=== PATIENT | male | born 1935 | race Caucasian/White ===

== ENCOUNTER → 2017-03-08 | Outpatient (CLI) | payer BC ==
[2017-03-08 09:45] LABS: BASO % 0.3 %; BASO ABS # 0.02 K/uL (0-0.2); COMPLETE YES; EOS % 4.8 %; IG% 0.1 %; LYMPH ABS # 3.13 K/uL (1.2-3.4); MEAN CORPUSCULAR HEMOGLOBIN 30.6 pg (25-34); MEAN CORPUSCULAR HGB CONC 33.3 g/dl (32-36); MEAN PLATELET VOLUME 10.8 fL (7.4-10.4); MONO % 9.6 %; NEUT % 42.2 %; PLATELET COUNT 208 K/uL (130-400); RED BLOOD COUNT 4.35 M/uL (4.7-6.1); WHITE BLOOD COUNT 7.28 K/uL (4.8-10.8)
[2017-03-08 09:59] LABS: ALT/SGPT 27 U/L (12-78); BLOOD UREA NITROGEN 21 mg/dl (7-18); BUN/CREATININE RATIO 15.9 (10-20); CALCIUM 9.7 mg/dl (8.5-10.1); CARBON DIOXIDE 27 mmol/L (21-32); CHLORIDE 107 mmol/L (98-107); GLUCOSE 118 mg/dl (70-99); POTASSIUM 4.2 mmol/L (3.5-5.1); SODIUM 140 mmol/L (136-145)
[2017-03-08 10:02] LABS: ALKALINE PHOSPHATASE 45 U/L (45-117); AST/SGOT 19 U/L (15-37)
== END | disposition home or self-care (01) ==
LOC: C.LABVPSUW 09:16
PROVIDERS: ATTEND Internal Medicine Critical Care Medicine
DX: D64.9 Anemia, unspecified (principal); I10 Essential (primary) hypertension

== ENCOUNTER → 2017-03-14 | Outpatient (CLI) | payer BC ==
[~2017-03-14] MED LIST: GADAVIST IV PRN
--- NOTE | 2017-03-14 10:08 | DIAGNOSTIC IMAGING REPORT ---
MRI OF THE BRAIN WITHOUT AND WITH IV CONTRAST CLINICAL HISTORY: RIGHT SIDE STROKE COMPARISON STUDY: No previous studies for comparison. TECHNIQUE: Utilizing a 1.5 Della magnet and dedicated coil, multiplanar, multiecho imaging of the brain was performed pre and postcontrast administration. IV administration of 8.5 mL of Gadavist contrast was uneventful. FINDINGS: No evidence for an acute ischemic event. Mild age-related chronic small vessel change. Ventricular system is midline. Postcontrast images are considered negative for an enhancing lesion. Sella and parasellar regions are unremarkable. IMPRESSION: Negative MRI of the brain for age. No evidence for an acute ischemic event. Electronically signed by: Дмитрий Fuentes M.D. 03/14/2017 10:07 AM Dictated Date/Time: 03/14/2017 10:03 AM
== END | disposition home or self-care (01) ==
LOC: C.MRI 09:01
PROVIDERS: ATTEND Internal Medicine Critical Care Medicine
DX: I63.9 Cerebral infarction, unspecified (principal)

== ENCOUNTER → 2017-05-10 | Outpatient (CLI) | payer BC ==
--- NOTE | 2017-05-10 09:48 | DIAGNOSTIC IMAGING REPORT ---
L-SPINE MIN 4 VIEWS ROUTINE CLINICAL HISTORY: 82 years-old Male presenting with COMPRESSION FRACTURE. TECHNIQUE: Frontal, bilateral oblique, and lateral views of the lumbar spine as well as coned in lateral view of the lumbosacral junction were obtained. COMPARISON: None. FINDINGS: Normal lumbar lordosis. 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 Mild intervertebral disc height loss at L5-S1. Vertebral body heights and alignment maintained. No radiographic evidence of compression fracture. Evaluation for osseous neural foraminal narrowing is limited due to positioning. Moderate stool burden. No gross pneumoperitoneum. IMPRESSION: No radiographic evidence of lumbar compression fracture. Multilevel degenerative changes. Electronically signed by: Oliver Thakkar M.D. 05/10/2017 9:47 AM Dictated Date/Time: 05/10/2017 9:45 AM
== END | disposition home or self-care (01) ==
LOC: C.RAD 09:10
PROVIDERS: ATTEND Internal Medicine Critical Care Medicine
DX: M48.57XA Collapsed vertebra, not elsewhere classified, lumbosacral region, initial encounter for fracture (principal)

== ENCOUNTER → 2017-12-10 | Outpatient (CLI) | payer BC ==
[2017-12-10 10:38] LABS: HEMOGLOBIN A1C 6.3 % (4.5-5.6)
== END | disposition home or self-care (01) ==
LOC: C.LABVPSUW 09:19
PROVIDERS: ATTEND Internal Medicine Critical Care Medicine
DX: E11.9 Type 2 diabetes mellitus without complications (principal)